=== PATIENT | male | born 1980 | race Caucasian/White ===

== ENCOUNTER 2023-11-26 18:34 | Emergency (ER) | payer OTHER ==
[2023-11-26] MEDS ORDERED: fentaNYL 50 mcg/mL 1 mL Vial ONE ×2 (18:40→19:27)
[2023-11-26] MEDS ORDERED: Ondansetron PF 4 MG/2 ML Vial ONE (18:40)
[2023-11-26 18:57] LABS: #Basophils 0.2 thou/uL (0.0-0.2); #Eosinphils 0.2 thou/uL (0.0-0.7); #Lymphocytes 3.4 thou/uL (1.20-3.40); #Monocytes 0.7 thou/uL (0.11-0.59); #Neutrophils 4.6 thou/uL (1.40-6.50); %Basophils 1.7 % (0.0-1.0); %Eosinophils 2.6 % (0.0-10.0); %Lymphocytes 36.9 % (21.0-51.0); %Monocytes 7.7 % (0.0-10.0); %Neutrophils 51.1 % (42.0-75.0); Hematocrit 49.2 % (42.0-52.0); Hemoglobin 16.5 g/dL (14.0-18.0); Mean Corpuscular HGB CONC 33.5 g/dL (32.0-36.0); Mean Corpuscular Hemoglobin 27.5 pg (27.0-31.0); Mean Corpuscular Volume 81.9 fl (78.0-98.0); Mean Platelet Volume 6.6 fL (7.4-10.4); Platelet Count 311 10x3/uL (130-400); RBC Distribution Width 12.2 % (11.5-14.5); Red Blood Cell (RBC) Count 6.01 mill/uL (4.70-6.10); White Blood Cell (WBC) Count 9.1 10x3/uL (4.8-10.8)
[2023-11-26] MEDS ORDERED: Boostrix 0.5 ML (Tdap) VIAL (>/=7 yrs of age) ONE (19:07)
[2023-11-26 19:11] LABS: ALT (SGPT) 43 U/L (8-55); AST (SGOT) 28 U/L (5-34); Albumin 4.3 g/dL (3.5-5.0); Alkaline Phosphatase 71 U/L (40-110); Anion Gap 17 mmol/L (10-20); BUN (Urea Nitrogen) 12 mg/dL (8.9-20.6); Bilirubin, Total 0.5 mg/dL (0.2-1.2); Calc. Creatinine Clearance 0 mL/min (70-130); Calcium 9.7 mg/dL (7.8-10.44); Carbon Dioxide 21 mmol/L (22-29); Chloride 105 mmol/L (98-107); Estimated GFR 96; Globulin 3.2 g/dL (2.4-3.5); Glucose 125 mg/dL (70-105); Potassium 3.8 mmol/L (3.5-5.1); Protein, Total 7.5 g/dL (6.0-8.3); Sodium 139 mmol/L (136-145)
== END 2023-11-26 20:30 | disposition short-term general hospital (02) ==
LOC: BURERS 18:34
DX: T23.232A Burn of second degree of multiple left fingers (nail), not including thumb, initial encounter (principal); T24.202A Burn of second degree of unspecified site of left lower limb, except ankle and foot, initial encounter; T31.0 Burns involving less than 10% of body surface; X04.XXXA Exposure to ignition of highly flammable material, initial encounter; Z23 Encounter for immunization
CPT/HCPCS: 80053; 85025; 90471; 90715; 96374; 96376; J2405; J3010